=== PATIENT | female | born 1990 | race Caucasian/White ===

== ENCOUNTER 2025-03-18 15:35 | Outpatient (CLI) | payer OTHER, SELFPAY | END 2025-03-18 16:10 | disposition home or self-care (01) | LOC: LABOR 16:31 → OB 03-19 08:21 | PROVIDERS: PCP Student in an Organized Health Care Education/Training Program; Referring Provider Student in an Organized Health Care Education/Training Program; Visit Provider Student in an Organized Health Care Education/Training Program | DX: O24.419 Gestational diabetes mellitus in pregnancy, unspecified control (principal); Z3A.39 39 weeks gestation of pregnancy | CPT/HCPCS: 59025; G0378; G0379 ==

== ENCOUNTER 2025-03-19 01:00 | Inpatient (IN) | payer OTHER, SELFPAY ==
[2025-03-19 01:54] VITALS: BP 122/69
[2025-03-19] MEDS: LACTATED RINGERS 1,000 ML 100 ML IV (01:54)
[2025-03-19] MEDS: AMPICILLIN 2,000 MG in SODIUM CHLORIDE 0.9% 100 ML 200 MG IV (01:55)
[2025-03-19 02:12] LABS: Add Manual Diff / Slide Review NO; Hematocrit 37.2 % (36-46); Hemoglobin 12.9 g/dL (12.0-16.0); Lymphocytes Absolute Auto 2000 /uL (1100-4500); Mean Corpuscular HGB Conc 34.7 % (30-36); Mean Corpuscular Hemoglobin 29.4 PG (26-34); Mean Corpuscular Volume 84.6 fL (80-100); Platelet Count 180 X10^3/uL (150-400)
--- NOTE | 2025-03-19 04:11 | PM.AN.REGBLK ---
Regional Block Pre-procedure Procedure: Continuous Lumbar Epidural for L&D PMH/ROS narrative: 34yr old requesting epidural for labor. PMH of GDM. ASA Class: II Labs: Hct 37.2 % (36-46) 03/19/25 01:49 Plt Count 180 X10^3/uL (150-400) 03/19/25 01:49 Medications: Current Medications Generic Name Dose Route Start Last Admin Trade Name Freq PRN Reason Stop Dose Admin Calcium Carbonate 1,000 mg 03/19/25 01:29 Calcium Carbonate 500 Mg Tab PO Q2HR PRN Dyspepsia Carboprost Tromethamine 250 mcg 03/19/25 01:29 Carboprost 250 Mcg/Ml Ampul IM Q90M PRN Bleeding Fentanyl 100 mcg 03/19/25 01:29 Fentanyl 100 Mcg/2 Ml Inj IV Q1H PRN Pain, Severe (7-10) Oxytocin/Lactated Ringer's 30 unit in 500 mls @ 200 mls/hr 03/19/25 01:29 Oxytocin Premix IV CONT PRN Bleeding Protocol Tranexamic Acid 1,000 mg/ 100 mls @ 600 mls/hr 03/19/25 01:29 Sodium Chloride IV NOW PRN Bleeding Ampicillin Sodium 1,000 mg/ 100 mls @ 200 mls/hr 03/19/25 06:00 Sodium Chloride IV Q4H BING Lactated Ringer's 1,000 mls @ 100 mls/hr 03/19/25 01:30 03/19/25 01:54 Lactated Ringers IV 03/19/25 11:29 100 mls/hr CONT BING Administration Lidocaine HCl 20 ml 03/19/25 01:29 Lidocaine 1% 20 Ml INJ INTRA-OP PRN Post Delivery Methylergonovine Maleate 0.2 mg 03/19/25 01:29 Methylergonovine 0.2 Mg Tablet PO Q6HR PRN Heavy Bleeding Methylergonovine Maleate 0.2 mg 03/19/25 01:29 Methylergonovine 0.2 Mg/Ml Vial IM NOW PRN Bleeding Mineral Oil 30 ml 03/19/25 01:29 Mineral Oil 30 Ml Udc TOP PRN PRN Version Misoprostol 800 mcg 03/19/25 01:29 Misoprostol 200 Mcg Tablet AZ NOW PRN Bleeding Misoprostol 400 mcg 03/19/25 01:29 Misoprostol 200 Mcg Tablet SL NOW PRN Bleeding Naloxone HCl 0.2 mg 03/19/25 01:29 Naloxone 0.4 Mg/Ml Vial IV Q2MIN PRN Opiate Reversal Ondansetron HCl 4 mg 03/19/25 01:29 Ondansetron 4 Mg/2 Ml Inj IV Q4HR PRN Nausea And Vomiting Oxytocin 10 unit 03/19/25 01:29 Oxytocin 10 Unit/Ml Vial IM NOW PRN Bleeding Allergies: Allergies Allergy/AdvReac Type Severity Reaction Status Date / Time No Known Drug Allergies Allergy Verified 03/18/25 15:16 Procedure Insertion date: 03/19/25 Insertion time: 03:47 Prep/Local: 1% lidocaine (chloroprep) Interspace: L4-5 Patient position: sitting Needle: 18 gauge Hustead Loss of resistance with: saline MELL at (cm): 9 Catheter placed at SKIN (cm): 15 Catheter in SPACE (cm): 6 Insertion: No CSF, No Blood, No Paresthesia with insertion, No Paresthesia with injection and No Test dose reaction Initial Medications TEST DOSE time: 03:47 BOLUS DOSE time: 03:50 BOLUS DOSE (mL): 2 BOLUS DOSE med: other (1.5% with epi test dose) Infusion INFUSION: 0.125% bupivacaine and with fentanyl 2 mcg/mL Initial rate (mL/hr): 7 Subsequent interventions: Bolus 0.25% bupivicaine at 0359 5cc Bolus 0.25% bupivicaine at 0423 5cc 0600 called because epidural bag empty despite rate set a 7cc/h. Patient not able to feel contractions but able to move legs. New bag hung. 0645 pump taken down and sent to [email or web address]. New pump put on infusate and rate dropped to 6cc/h. Patient continuing to do well. Post-procedure Anesthesia date START: 03/19/25 Anesthesia time START: 03:30 Anesthesia date END: 03/19/25 Anesthesia time END: 08:34 Post-procedure Anesthesia Assessment: Yes CV function: HR/BP stable, Yes Resp function: RR/sat/airway adequate, Yes Post-op hydration adequate, Yes Pain control adequate, Yes Nausea & vomiting absent, Yes Temperature > 36 C and Yes Mental status appropriate
[2025-03-19] MEDS: AMPICILLIN 1,000 MG in SODIUM CHLORIDE 0.9% 100 ML 200 MG IV (06:00)
[2025-03-19] MEDS: FENT 2MCG/ML BUPIV 0.125% EPI 200 MCG/100 ML PLAST..BAG 6 MCG EPIDURAL (06:10)
--- NOTE | 2025-03-19 07:28 | PM.OBHP.IH.1 ---
OB HPI Date/Time Date of admission: 03/19/25 History of Present Condition Chief complaint: contractions JULIET Calculator Estimated Delivery Date Method Current WG Current Estimate 03/20/25 LMP (Certain) 39w 6d : 4 Para: 1 Narrative: This is a 34 yo at 39w6d here with spontaneous labor. complicated by GDMA1. Membranes stripped in clinic afternoon prior to admission. Good movement. Membranes intact. care: good care Dating criteria OB: LMP confirmed by 1st trimester US Ultrasounds: normal 1st trimester US and normal mid trimester US Obstetrical complications: gestational diabetes Medical complications OB: none Preadmission Labs Last OB Lab Results: Blood Type B Positive Today, 01:49 Antibody Screen Negative Today, 01:49 Hct, (36-46) 37.2 % Today, :49 Hgb, (12.0-16.0) 12.9 g/dL Today, 01:49 Group B Strep (PCR) Pos for grp b strep H 02/22/25, 10:30 Glucose Tolerance Testin hr (fail, declined 3 hr; treated as GDMA1) Prior (ies) Past Pregnancies Del. Date GA/Weeks Labor Lgth Wt Sex Route Outcome Anesthesia Place Delv Breastfeed Preg Comp Name 01/08/11 <10 elective 03/06/20 37+ 6 5 lb 9 oz Female vaginal live - full term epidural [facility] 5 months gestational diabetes Amber 08/11/23 ~10 spontaneous Delivery Date: 01/08/11 Last Updated by: Hilaria Damon RN PO meds only, no complications Delivery Date: 03/06/20 Last Updated by: Hilaria Damon RN diet controlled GDM, SGA Delivery Date: 08/11/23 Last Updated by: Hilaria Damon RN Needed D&C, no further complications Evaluation Evaluation Baseline heart rate: 145 Variability: Moderate (6-25) monitor accelerations: Present Monitor Decelerations: Absent Uterine Contraction Intensity: Strong/Firm Category of Tracing: Reactive Status: Category l Dilation (cm): 4 Effacement (%): 70 Dilation: 3-4 cm Effacement: 60-70% station: -3 Position of cervix: mid Consistency: soft Gaviria score: 7 PFSH Surgical History (Updated 02/20/25 @ 20:38 by Ester Yeh) Anesthesia History of dilation and curettage (~09/08/23) Family History (Updated 01/30/25 @ 13:32 by Hilaria Damon RN) Mother Diabetes mellitus Sister Gestational diabetes Pre-diabetes Grandmother Ovarian cancer Grandmother Diabetes mellitus Social History marital status: number of children: 1 household members: spouse, family (parents) and children lives independently: Yes caregiver/support person: Yes housing: house pets and animals: No education level: high school occupational status: employed (works from home) current occupational exposures/hazards: No special lashay needs: No travel history: recent (domestic only) seatbelt use: always water heater temp set < 120 deg: Yes working smoke detector in home: Yes fire extinguisher in home: Yes carbon monox detector in home: Yes firearms in home: No do you feel safe at home: Yes Smoking Status: Never smoker second hand exposure: No alcohol intake: former (~1-2 drinks 2-3x/week when not ) substance use type: does not use during the past year weight has: remained stable (prior to ) well-balanced diet: about half the time daily servings fruits/ve-4 caffeine: Yes (minimal) Type(s) of exercise: walking Meds Home Medications and Allergies Home Medications ?Medication ?Instructions ?Recorded ?Confirmed ?Type vitamin-ferrous sulfate 1 tab PO DAILY 01/30/25 03/19/25 History 27 mg iron-folic acid 0.8 mg tablet ferrous sulfate 325 mg (65 mg 325 mg PO DAILY 03/19/25 03/19/25 History iron) tablet (Iron (ferrous sulfate)) Allergies Allergy/AdvReac Type Severity Reaction Status Date / Time No Known Drug Allergies Allergy Verified 03/19/25 04:44 Objective Labs 03/19/25 01:49 Labs: Laboratory Results - last 24 hr 03/19/25 03/19/25 03/19/25 01:47 01:49 05:06 WBC 11.3 H RBC 4.40 Hgb 12.9 Hct 37.2 MCV 84.6 MCH 29.4 MCHC 34.7 RDW 13.9 Plt Count 180 Neut % (Auto) 70.8 Lymph % (Auto) 18.0 L [place] % (Auto) 8.9 Eos % (Auto) 1.9 L Baso % (Auto) 0.4 Neut # (Auto) 8000 H Lymph # (Auto) 2000 [place] # (Auto) 1000 H Eos # (Auto) 200 Baso # (Auto) 0 POC Whole Bld Glucose 87 89 Blood Type B Positive Antibody Screen Negative Assessment and Plan Assessment and Plan Assessment and Plan narrative: 34 yo at 39w6d here with spontaneous labor. GBS pos. GDMA1. SVE at admission /-3. -antibiotics to be started for GBS pos -desires epidural for pain control -check blood sugars q4h until active then q1hr -anticipate SVE Time-Based Coding :: 30 minutes spent with patient and on the chart (including review of chart, obtaining history, exam, reviewing outside data, placing orders, documenting exam and treatment plan, and counseling patient) on 03/19/2025.
[2025-03-19] MEDS: fentaNYL 100 MCG/2 ML INJ 50 MCG IV (09:00)
[2025-03-19] MEDS: OXYTOCIN PREMIX 30 UNIT/500 ML PLAST..BAG 200 UNIT IV (09:10)
--- NOTE | 2025-03-19 09:30 | P.PCNOB_ITS ---
Events: Gestational Diabetes Labor & Delivery Delivery date: 03/19/25 Delivery Time: 08:34 Intrapartal Events: None Cervical ripening method: none Induction method: AROM Delivery monitor: external FHT Route of delivery: L&D Laceration Description: Periurethral - 1st Degree Estimated blood loss (mL): 500 Anesthesia Type: Epidural Narrative: The patient progressed to C/C/+2 with AROM and epidural anesthesia. After approximately 30 minutes of maternal pushing efforts, the infant delivered in OA position and restituted STANTON. The anterior shoulder delivered with gentle downward pressure. The posterior shoulder and rest of body delivered with ease. The cord was doubly clamped and cut after a 3 minute delay with the placed on maternal abdomen. The placenta was attempted to deliver but was adhered tightly to uterus. Cord avulsed at 12 minutes following delivery of . An attempt to manually extract placenta was made and was unsuccessful. OBGYN (Dr Aj) was paged and arrived 3 minutes later. She asked for pitocin to be shut off. 50 mcg fentanyl was given. Placenta was manually extracted in pieces by Dr. Aj (procedure note to follow). Bedside US showed thin endometrial stripe. The placenta was sent to pathology. The fundus was noted to be firm with bimanual massage and pitocin was restarted. 2g of ancef were given. Inspection of the cervix, vagina, and perineum was notable for 1st degree right periurethral laceration. All sponges were removed from the vagina. The patient tolerated delivery well and remained in the labor room with the at the [facility]. Plan for aftercare: Routine care
--- NOTE | 2025-03-19 09:34 | PM.PROC.IH ---
Procedures Date/Time Date of procedure: 03/19/25 Time of procedure: 09:10 General Procedure description: Called to bedside to assist Dr. Maurice with retained placenta and an evulsed cord. Received history of complicated by GDMA1 progressed to an uncomplicated . At 14mins the cord evulsed and i was called to assist with manual extraction of the placenta. Pitocin turned off. Patient epidural re dosed and given IV fentanyl for pain control. The right hand was gently introduced through the cervix and into the uterus along the cord and the left hand was placed on the abdomen for counter traction. The placenta was swept away from the uterine wall but difficulty reaching the fundal edge of the placenta. The placenta was removed in pieces. The final upper piece was reached at this point and gently removed from the uterus. A bedside Ultrasound was performed noting a thin endometrial stripe with no evidence of retained tissue. A manual sweep of the uterus at that time was performed to ensure all placental tissue had been removed as well. The placenta was sent to pathology. Patient received 2gm IV ancef due to uterine manipulation to reduce risk of endometritis. Patient tolerated procedure well. Pitocin drip was started to improve uterine tone and reduce additional bleeding. See primary OB note for full delivery note. Complications: none IH PROFEE Truer Pinion And Wheel Document charge(s): No
[2025-03-19] MEDS: KETOROLAC 30 MG/ML VIAL IV (09:56)
--- NOTE | 2025-03-19 11:27 | PATH_ITS ---
[facility] Accession Number: [id number] No. of containers..01 Tissue . 01 Material submitted: . placenta - PLACENTA . 01 Diagnosis: PLACENTA (505 g): Nielsen placenta (39 weeks 6 days per provided note), fragmented. Avulsed trivascular umbilical cord with no vasculitis. membranes with meconium deposition; no chorioamnionitis identified. Placental disc with appropriate villous maturation for gestational age. MRV 03/21/2025 1733 Local . 01 Electronically signed: . Jigar Palumbo MD, Dermatopathologist NPI- [id number] . 01 Gross description: . Received in formalin with two identifiers and placenta, is a ragged, ovoid, fragmented nielsen placenta weighing 505 grams aggregating to 23.5 x 15.2 x 5.5 cm. The presence or abscence of accessory lobes cannot be determined. . The membranes are huffman and translucent with a small huffman area of thickening less than 10% of the membrane surface. The attached portion of membranes inserts at the margin and due to the disrupted nature of the specimen the point of rupture cannot be determined. . The cord is 58.2 cm in length by 1.5 cm in average diameter with a large amount of membranous presumed amnion attached to one end of the cord measuring 11.7 x 3.8 x 2.0 cm. The cord is received detached from the placental disc and a presumed leftward coil with and index of approximately 1.5 twists per 5 cm. The presumed insertion is central and sectioning reveals unremarkable trivascular architecture with no knots or lesions identified. . The surface is blue-wade, ragged, with no lesions definitively identified. Due to the fragmented nature of the specimen completeness cannot be determined, and no lesions are definively identified on the maternal surface. Sectioning reveals a red, spongy cut surface with no lesions identified. . . Ell Tutor sections are submitted as follows: A1: Membrane roll. A2: Cord. A3-A4: Full thickness sections. A5: Non full thickness section from fragmented area. ([id number]) /MAXWELL 03/21/2025 1733 Local . 01 Pathologist provided ICD-10: O69.89X0 . 01 CPT . 782729 Specimen Comment: A courtesy copy of this report has been sent to [facility] Pathology Performed at: [address] [address], [place], [place] [id number] MD Bill Hill MD Phone: [phone]
[2025-03-19] MEDS: ACETAMINOPHEN 325 MG TABLET 650 MG PO ×2 (12:21→18:11)
[2025-03-19] MEDS: DERMOPLAST SPRAY 20% 60 ML 1 SPRAY TOP (12:23)
[2025-03-19] MEDS: IBUPROFEN 600 MG TABLET PO ×2 (16:35→22:37)
[2025-03-20 00:07] VITALS: TEMP 36.9
[2025-03-20] MEDS: ACETAMINOPHEN 325 MG TABLET 650 MG PO (00:07)
--- NOTE | 2025-03-20 08:59 | PM.OBDS.1 ---
Discharge Providers Provider Date of admission: 03/19/25 01:00 Discharge Date: 03/20/25 Primary care physician: Kaia Arambula MD Consults: 03/19/25 01:29 Consult to Anesthesiology Urgent Comment: Consulting Provider: Mary William Reason for consultation: Epidural Has provider been notified: No 03/19/25 09:43 Consult to Statistical Analyst Routine Comment: Discharge provider: Varinder Romero MD Summary Hospital Course Date Patient Seen: 03/20/25 Diagnoses: # #GDM # mother Hospital Course: Admitted for normal labor on 03/19/2025. Progressed adequately AROM augmentation to complete dilation over the course of 7 hours. She had an uncomplicated of a live male infant with a first-degree right periurethral laceration. Cord avulsed at 12 minutes following delivery of . Initial attempts at removal were unsuccessful. OBGYN on-call was consulted and placenta was manually extracted in pieces. Bedside US showed thin endometrial stripe. The placenta was sent to pathology. The fundus was noted to be firm with bimanual massage and pitocin was restarted. 2g of ancef were given. Her course was uncomplicated. At discharge patient is ambulating well, tolerating normal diet, breast-feeding without difficulty, and pain is adequately controlled. She reports bleeding is similar to normal menses. Peripartum Data Delivery Method: Natural Vaginal Laceration Description: Periurethral - 1st Degree Procedures: Manual extraction of placenta complications: none [place] 1: Gender: Male Disposition of : home Discharge Diagnosis (1) (spontaneous vaginal delivery): Status: Acute (2) Mother currently breast-feeding: Status: Acute Status at Discharge Cognitive/behavioral status at discharge: at baseline, oriented Functional status at discharge: independent ambulation Time Spent with Patient Time attestation: Total time spent providing and/or coordinating discharge services: 20 minutes Objective Labs 03/19/25 01:49 Exam Narrative Exam Narrative: General: Well-appearing, well-nourished, no distress HEENT: Moist mucous membranes, no pallor CV: Regular rate and rhythm, no murmur auscultated Resp: CTAB, comfortable work of breathing Abdomen: Soft, bowel sounds present, fundus firm below umbilicus with appropriate tenderness Extremities: No edema, no calf tenderness or evidence of DVT Discharge Plan Discharge Plan Patient Disposition: Home Discharge orders & Medications Prescriptions: New acetaminophen 325 mg Tablet 650 mg PO Q6H PRN (Reason: Pain, Mild (1-3)) Qty: 60 1RF Dermoplast (with menthol) 20-0.5 % Aerosol 1 spray topical Q1HR PRN (Reason: Pain, Moderate (4-6)) Qty: 78 1RF ibuprofen 600 mg Tablet 600 mg PO Q6H Qty: 60 1RF Purelan Cream 1 applic topical PRN PRN (Reason: Sore Nipples) Qty: 7 10RF polyethylene glycol 3350 17 gram/dose powder 17 g PO DAILY Qty: 510 1RF Continued vit-ferrous sulfat-FA 27 mg iron- 0.8 mg tablet 1 tab PO DAILY ferrous sulfate [Iron (ferrous sulfate)] 325 mg (65 mg iron) tablet 325 mg PO DAILY Follow up/Referrals: Kaia Arambula MD [Primary Care Provider, [facility]] - 04/30/25 3:00 pm Diet/Activity/Treatments Diet: Diet as Tolerated Visit Report/Discharge Packet Stand Alone Forms: Discharge: Care, Patient Portal/API, Stroke Signs & Symptoms Discharge Data Primary Care Provider: Kaia Arambula Discharges patient from system. Discharge Date/Time: 03/20/25 10:50
[2025-03-20 10:58] VITALS: BP 110/70; PULSE 102; RESP 15; TEMP 36.8
== END 2025-03-20 10:50 | disposition home or self-care (01) | DRG 798 ==
PROVIDERS: Admitting Provider Student in an Organized Health Care Education/Training Program; PCP Student in an Organized Health Care Education/Training Program; Referring Provider Student in an Organized Health Care Education/Training Program; Visit Provider Student in an Organized Health Care Education/Training Program
DX: O24.429 Gestational diabetes mellitus in childbirth, unspecified control (principal); Z37.0 Single live birth; Z3A.39 39 weeks gestation of pregnancy; O99.824 Streptococcus B carrier state complicating childbirth; O73.0 Retained placenta without hemorrhage
CPT/HCPCS: 36415; 59050; 76815; 82962; 85025; 86850; 86900; 86901; G0379; J0290; J0690; J1885; J2590; J3010